=== PATIENT | female | born 1955 | race Caucasian/White ===

== ENCOUNTER 2021-04-19 03:48 | Inpatient (IN) | payer OTHER ==
[~2021-04-19] VITALS: Ht 167.6 cm; Wt 96.6 kg
[~2021-04-19 03:48] MED LIST: ACETAMINOPHEN-1 EAC1 PO; ACYCLOVIR 400400 MG PO; AMBIEN 5 MG TABL5 M1 PO; ANECREAM5 GM TOP; ASPIR 8181 MG PO; ATIVAN1 MG PO; AUGMENTIN 875-1 EACH PO; AUGMENTIN 875875 MG PO; BACLOFEN 10MG T10 MG PO; BACTRIM DS TAB1 EACH PO; BUTRANS1 EAC1 TD; CEFDINIR300 MG PO; CENTANY30 GM TP; CEPHALEXIN 500500 M3 PO; CLONAZEPAM 0.50.5 M1 PO; CLONAZEPAM 1 MG1 M1 PO; CODEINE-GUAIFE120 ML PO; COLACE100 MG PO; CRESTOR10 MG PO; CYCLOBENZAPRINE10 MG PO; CYCLOBENZAPRINE5 MG PO; DENAVIR1.5 GM TP; DIFLUCAN150 MG PO; DIFLUCAN200 MG PO; DOXYCYCLINE 10100 MG PO; ELIQUIS5 MG PO; EXTRA STRENGTH85 GM TOP; FAMCICLOVIR250 MG PO; FLEXERIL PO; GLUMETZA1000 PO; HUMALOG100 UNIT/1 SUBQ; HYDROCHLOROTHIA25 M2 PO; HYDROCODON-ACE1 EAC8 PO; HYDROCODONE-ACE15 ML PO; HYDROCODONE-AP1 EA11 PO; HYDROCODONE-AP1 EAC6 PO; HYDROCODONE-APA1 TA1 PO; IBUPROFEN 800800 M1 PO; IBUPROFEN IB200 MG PO; INSULIN; IRON236 MG PO; KEFLEX500 M1 PO; KEFLEX500 MG PO; KLONOPIN0.5 MG PO; KLOR-CON 1010 MEQ PO; LANTUS SUBQ; LANTUS100 UNIT/M SUBQ; LASIX 20 MG TAB20 MG PO; LEVAQUIN 500 M500 M2 PO; LEVAQUIN 750 M750 MG PO; LEXAPRO20 MG PO; LIDOCAINE 22 %/30 GM TOP; LIPITOR 20 MG T20 M1 PO; LISINOPRIL40 MG PO; LUNESTA3 MG PO; LYRICA150 MG PO; MAG-AL PLUS SUS30 ML PO; MAGNESIUM250 M1 PO; MECLIZINE HCL25 M1; MEDROLDOSEPACK PO; METFORMIN HCL500 MG PO; MIRALAX17 GM PO; MOM PO; MULTIVITAMINS PO; NEURONTIN 300300 M1 PO; NEURONTIN100 MG PO; NORCO 10-325 T1 EACH PO; NORCO 5-325 TA1 EACH PO; NORCO 7.5-3251 EACH PO; NORFLEX100 MG PO; NORVASC5 MG PO; NOVOLIN R100 UNIT/3 SUBQ; ONDANSETRON ODT4 MG PO; OXYCODONE HCL15 MG PO; PERCOCET PO; PHENERGAN 25 MG25 M1 PO; PREDNISONE 10 M10 M1 PO; PREDNISONE 10 M10 MG PO; PROAIR HFA8.5 GM INH; PROTONIX40 M1 PO; RANITIDINE 150150 M1 PO; ROBAXIN 750 MG750 M1 PO; ROBAXIN 750 MG750 MG PO; SONATA5 M1 PO; TESSALON PERLE100 MG PO; TRAZODONE 150150 M1 PO; TYLENOL325 MG PO; UNICOMPLEX M TA1 TA1 PO; VALACYCLOVIR HCL1 GM PO; VALACYCLOVIR1000 MG PO; VALIUM5 MG PO; VENTOLIN HFA 1818 GM INH; VICTOZA0.6 MG/0.1 SUBQ; XARELTO15 MG PO; XARELTO20 MG PO; ZANAFLEX4 MG PO; ZANTAC 150MG T150 MG PO; ZOCOR20 MG PO; ZOCOR40 MG PO; ZOFRAN ODT4 MG DISSOLVE; ZPAK PO
[2021-04-19 05:50] VITALS: BP 115/54
--- NOTE | 2021-04-19 07:38 | NUR ---
RECEIVED REPORT FROM [facility]. RECEIVED COVID UPDATE FROM [facility] GONZALEZ. PT ARRIVED ON UNIT 0530. PT AAOX4, VSS, RR EVEN AND NONLABORED ON RA, PT LUNGS CLEAR, HT RR, ABD SOFT AND ACTIVE. HCP Maximiliano CAMACHO NP CONTACTED AND MESSAGE LEFT. ONCOMING RN WILL MOVING THIS PT CARE FORWARD, IN AREAS OF ADMIT QUESTION AND MEDICATION REVIEW WITH HCP DO TERRY. PT HAS BEEN CALM AND COOPERATIVE, ZERO S/S OF ACUTE DISTRESS NOTED, PT WILL CONTINUE TO BE MONITOR PER [facility] PROTOCOL.
--- NOTE | 2021-04-19 09:01 | NUR ---
ARRIVES TO FLOOR AT APPROX [id number] YEAR OLD FEMALE-[place] [facility] [place] REPORTED PSYCHOSIS,DELUSIONAL THINKING -BELIEVES THAT MOLD IS IN HER HOME AND SMELLS IT AND FEELS IT UNDER HER SKIN AND DENTURES. HAS BEEN RUBBING SKIN RAW WITH PUMICE STONE-REFUSING TO STAY AT APARTMENT-LIVING IN CAR. BROUGHT TO ER BY COMPREHENSIVE MENTAL HEALTH COLLECTION CLERK MEMOJEANETTE LAW [phone]. DOES REPORT CHRONIC PAIN FROM FX OF RIGHT HUMEROUS AND SUBSEQUENT SURGERIES TO PLACE PINS,A SCREW AND A CLARE PER PT REPORT-STATES "OPIATES AND THC ARE THE ONLY THING THAT MAKE THE PAIN TOLERABLE" VS OBTAINED BY TOW TRUCK DISPATCHER STAFF AND ARE REPORTED TO BE WNL-COOPERATIVE WITH SIGNING CONSENT TO TREAT BUT REFUSES OTHERS STATING "CAN WE DO IT LATER"GAIT STEADY WITHOUT ASSISTIVE DEVICES.DYSPHORIC MOOD-RATES ANXIETY A 9/10. BLOOD SUGAR OBTAINED AFTER BREAKFAST AND IS > 300-md notified AND ADMIT ORDERS TO BE ENTERED.
[2021-04-19 09:36] VITALS: BP 132/70
[2021-04-19 11:29] LABS: CHOLESTEROL 199 mg/dL (<200); HDL CHOLESTEROL 45 mg/dL (>40); LDL CHOLESTEROL 106 mg/dL (<100); TC:HDL 4.4 Ratio (Not establshd); TRIGLYCERIDE 241 mg/dL (<150); VLDL 48 mg/dL (<40)
[2021-04-19 12:26] LABS: FOLIC ACID 31.4 ng/mL (8.6-58.9)
--- NOTE | 2021-04-19 13:22 | NUR ---
HAS BEEN FOCUSED ON MEDICATION SO FAR THIS SHIFT-BS AT 0730 336 AFTER SHE ATE-AT DESK WITHIN 5 MINUTES OF BS BEING DRAWN STATING "I NEED MY INSULIN RIGHT AWAY" INFORMED PT THAT ADMISSION ASSESSMENT,MED VERIFICATION,CONSENTS,ETC HAD TO BE COMPLETED PRIOR TO MD PUTTING IN MED ORDERS AND THAT AFTER ENTERED BY MD WOULD REQUIRE ADDITIONAL VERIFICATION IN PHARMACY PRIOR TO COMING TO FLOOR.-DR SANDERS CONTACTED AT APPROX 1045 RE MISSED DOSE OF INSULIN AND BS RECORDED AFTER EATING BREAKFAST-O RECEIVED FOR ADDITIONAL 10UNITS INSULIN GIVEN AT APPROX 1230. REPORTING RIGHT ARM PAIN RATED A 9 ON 1/10 SCALE-REQUESTING HER NORCO-TEARFUL AND REPORTING FEAR ABOUT HOW SHE WOULD DO WITH IT BEING STOPPED ABRUPTLY-MY PAIN MANAGEMENT DR HAS HAD ME ON THAT FOR YEARS-CAN THEY CALL HIM" ATTENDING GROUP-GAIT STEADY-APPETITE FAIR-DYSPHORIC MOOD-
[2021-04-19] MEDS ORDERED: NORCO7.5 PO (16:26)
--- NOTE | 2021-04-19 18:44 | NUR ---
NORC0 1 TAB GIVEN PO PRN AT 1730 FOR RIGHT UPPER EXTREMITY PAIN RATED AN 8 ON 1-10 SCALE. DID VERBALIZE DECREASE IN PAIN TO A 4 WITHIN 20 MINUTES OF TAKING. OUT OF ROOM AND SOCIAL WITH PEERS IN DAYROOM. NO NOTED OR REPORTED PSYCHOSIS OR MENTION OF MOLD. APPETITE GOOD. DENIES SI/SH. GAIT STEADY WITHOUT ASSISTIVE DEVICES. ALERT AND ORIENTED X4. FULL RANGE AFFECT.
[2021-04-19 19:51] VITALS: BP 113/46
[2021-04-19 20:01] VITALS: BP 113/46
[2021-04-19 23:06] LABS: GLYCOHEMOGLOBIN (HGB A1C) 8.6 % (4.8-5.6)
--- NOTE | 2021-04-20 10:00 | NUR ---
New admit to [facility] for psychosis, paranoia, delusions. Hx DM, HTN, gastric sleeve. Eating 100% all meals, BG 120-165. A1C 8.6%. Wt is obese, BMI 34. Continue carb control diet. Low nutrition risk
[2021-04-20 11:37] VITALS: BP 153/98
--- NOTE | 2021-04-20 15:13 | NUR ---
04/19/2021 SW was able to completed the SLUMS with the Pt. Pt scored 18/30. SW was also able to complete assessment with the Pt. Pt admits to recieving services (med management, psychiatry, and case management) with [facility]. Pt states she is in a pain clinic. Pt stated she has a dx of panic disorder. Pt reports not have a strong support system and being estranged from her adult children. Pt stated " I am afraid to go home". Pt believes mold is growing in her home. Pt stated she does smoke marijuana on occasion but denies using other drugs. Pt denied ETOH use. SW left a for Pt's CMRuby [phone], requesting a call back.
[2021-04-20 19:51] VITALS: BP 150/69
--- NOTE | 2021-04-20 20:32 | NUR ---
0700 ASSUMED CARE OF PATIENT, PATIENT CALM AND COOPERATIVE. PATIENT INTRUSIVE AT TIME JUMPING IN ON OTHERS CONVERSATIONS. AMB WITH STEADY GAIT. MEDICATION TAKEN WHOLE WITHOUT DIFFICULTY. 0841 HYDROCODONE 1 TAB GIVEN FOR PAIN RATING A 6. LS CLEAR, BS ACTIVE. PRESENT IN GROUP THIS AFTERNOON. DENIES SI/HI.
--- NOTE | 2021-04-20 22:52 | H ---
[facility] [place] [address] HISTORY AND PHYSICAL Name: SUJEY CURRY Room #: 523A-A ADM IN M.R.#: [id number] Admission: 04/19/21 Attend Phys: Radha Thomas MD Discharge: Date of : 57 Report #: [id number] THIS REPORT FOR: cc: MEMO BARRAZA JENNIFER A. DO Kerstein, Andrew H. DO ~ DOC #: [id number] CHERRY Lopez DO DATE OF SERVICE: 04/19/2021 INPATIENT PSYCHIATRIC EVALUATION ATTENDING PSYCHIATRIST: Cherry Lopez DO MEDICAL CONSULTANTS: Poornima Morgan, nurse practitioner and Gerry Guillermo MD and his hospitalist team. SOURCES OF INFORMATION: Interview with the patient, records from [facility], affidavit completed by Memo Roe from [facility]. CHIEF COMPLAINT: Ongoing paranoia, mood swings, insomnia. HISTORY OF PRESENT ILLNESS: This is a 65-year-old female brought in by her onsite case manager to [facility] Emergency Department. Paranoia, mood swings, insomnia has been happening. She is a [facility] client. Last med changed a few months ago. It has been going on for years but feels it escalated lately. This caused her to be sleeping in her car because of afraid to be in an apartment. She talked with [facility] archivist [facility] history who brought her to the emergency department for evaluation. She has been very afraid of her apartment. She reports that the mold starts coming out at 6 or 7 p.m. She states that it gets on her skin like waxy substance. She happened to use things like foot files to try to remove the waxy substance from her body. She reports that this just happens at night and because of this, she is too afraid to re-enter in the apartment, slept in her car overnight last night, sometimes she will go to a hotel just to escape the apartment. She showed [facility] archivist military history today that she feels suicidal once she is in the apartment. She denies any type of attempt. She denies homicidal ideation. She denies any current medical illness such as fever, cough, nausea and vomiting. She denies any pain medication. No COVID exposure. She has been vaccinated. She denies pain at this time. PRIMARY CARE PHYSICIAN: Dr. Barraza. MEDICAL HISTORY: Includes history of aspiration pneumonia, diabetes mellitus type 2, obesity, dyslipidemia, hiatal hernia with GERD, HSV-1 infection, [facility] [address] [place] [address] HISTORY AND PHYSICAL Name: SUJEY CURRY Room #: 523A-A [facility] IN M.R.#: [id number] Admission: 04/19/21 Attend Phys: Radha Thomas MD Discharge: Date of : 57 Report #: [id number] hypertension, medication noncompliance and obstructive sleep apnea. PSYCHIATRIC HISTORY: Includes depressive disorder, generalized anxiety disorder and sleep disturbance. Also, remote medical history of pulmonary embolism. SURGICAL HISTORY: Operative treatment of humeral shaft fracture with plate and screws without cerclage on 08/25/2019, gastric sleeve, hernia repair, right hip arthroplasty and tubal ligation. Pilonidal cyst excision, injection for right hip in 2018. HOME MEDICATIONS: Include amlodipine 5 mg a day, aspirin 81 mg oral daily, insulin lispro 10 units with meals, Lantus 30 units subcutaneously at bedtime, lisinopril 20 mg daily, metformin 500 mg p.o. b.i.d., [place] 5/325 q. 4 hours p.r.n., pantoprazole 40 mg oral daily, pramipexole 0.25 mg oral daily and pravastatin 40 mg oral daily. ALLERGIES: MOLD CAUSES HIVES. STATIN, TETANUS, DIPHTHERIA, PERTUSSIS. SOCIAL HISTORY: Alcohol 1-2 times per year. This is from April 2020. Recreational drugs, marijuana 1-2 times per month. Affidavit from Memo Roe states the patient has been expressing paranoia, mold and mist in her home. States that it comes out at night and gets on her skin. She scoops all with a pumice stone and goes down her throat. She has recently stepped in a car to get away from it and stayed at a hotel where the mold followed her. Interview with me today, the patient stated that she could not be in around the apartment anymore and if she had to be there, she would not want to be around anymore. No plans of suicide, but has been feeling suicidal if the mold does not go away. CSS has been in the home and there is no mold present. From CSS standpoint, increase in delusions, paranoia, major mood swings and has expressed multiple times that she does not want to live if she cannot escape. Also, recent insomnia. There was another update from Kathi Griffin from . The patient was brought to the ER by digital community manager for [facility] for paranoid delusions of her apartment. The patient experienced tactile gustatory and olfactory hallucinations. Really feeling the mold is covering her skin and she is using a pumice stone to scoop it all over her skin. The patient reports it gets into my dentures and she constantly smell mold in her apartment. The patient reports cleaning trying to do clinical washing off the chinchilla and "my resident services manager has told me I am cleaning this much and taking a part of paint off the chinchilla." The patient is not eating or sleeping in the apartment and believing that the mold will cover her food and she has been staying in motels or sleeping in a car. The patient has a history of major depressive disorder, recurrent episode, moderate and is reportedly medication compliant; however, due [facility] [address] [place] [address] HISTORY AND PHYSICAL Name: SUJEY CURRY Room #: 523A-A ADM IN M.R.#: [id number] Admission: 04/19/21 Attend Phys: Radha Thomas MD Discharge: Date of : 57 Report #: [id number] to hallucinations she is not able to properly care for herself. There is a crisis report by Kathi Griffin basically saying the same thing. The one thing I am missing from [place] is I think they had done some labs there. LABORATORY DATA: COVID-19 PCR was negative. It looks like some lab work from [place], we will see what may be going on. Lab work from here at [facility] done on 03/24/2021, quite a month ago: Sodium 138, potassium 3.7, chloride 103, bicarbonate 20, anion gap 7, BUN 10, creatinine 0.7, estimated GFR 84. Glucose recently 130, hemoglobin A1c, she want to have from June 2019, and so we will review other 2020 labs. AST 16, ALT 27, alkaline phosphatase 28, CK 161, troponin less than 0.06, total protein 7.4, albumin 3.7, triglycerides 241, total cholesterol 199, LDL 106, HDL 45, lipase 43. Vitamin D, actually that is too old to quote. Folate 31.4. TSH 0.302, free T4 0.83. Urinalysis from [facility] showed 1+ ketones, moderate bacteria. Toxicology is positive for opiates, actually that was from 05/18/2020. COVID-19 test negative. Let me see if she had discharge summary. She had labwork recently at [facility] [place], does not look like. Review of systems done by the hospitalist service today include denied fever, chills, nausea, vomiting, diarrhea, chest pain, lightheadedness or dizziness. She states she has low back pain related to left hip pain. PHYSICAL EXAMINATION: VITAL SIGNS: Today, temperature 36.5, pulse 94, respirations 19, BP 113/46, O2 sat 95%, weight is 96.814 kilos, BMI 34.4. MUSCULOSKELETAL: Exam well developed, obese, unkempt female, appearing stated age. MENTAL STATUS EXAMINATION: This is a well-developed, obese female appearing stated age. Attention intact. Concentration was intact. Speech normal rate and tone. Thought process: Linear and goal directed. Thought content focused on her pain medications. Mood and affect congruent, euthymic, fair range. Denied suicidal ideation, homicidal ideation, auditory, visual, or tactile hallucinations. Memory not formally tested. Insight limited. Judgment limited. Fund of knowledge below average. FORMULATION: A 65-year-old obese female transferred from [facility] due to paranoia that would impact making her unable to live in her apartment. DIAGNOSES: Time unspecified psychosis, rule out delusional disorder. The patient denies history of previous psychiatric illness, previous psychiatric hospitalizations. Medical morbidities are as follows: EKG done shows sinus tachycardia with premature atrial contractions. lowvoltage from precordial leads. [facility] [address] [place] [address] HISTORY AND PHYSICAL Name: SUJEY CURRY Room #: 523A-A ADM IN [facility].#: [id number] Admission: 04/19/21 Attend Phys: Radha Thomas MD Discharge: Date of : 57 Report #: [id number] MEDICATIONS CURRENTLY IN THE HOSPITAL: Lisinopril 20 mg a day, Lexapro 20 mg oral daily, ATORVASTATIN DISCONTINUE DUE TO ALLERGIES NOTED, amlodipine 5 mg oral daily, pantoprazole 40 mg oral daily, start risperidone 0.5 mg p.o. b.i.d. for psychosis, Lantus 30 units subQ at bedtime, docusate 100 mg b.i.d., Mirapex 0.25 mg oral at 8:00 p.m. She requested hydroxyzine 50 mg q. 6 hours p.r.n. for anxiety or agitation. Otherwise, house PRNs. PLAN: Evaluate stabilize, obtain collateral. See response to antipsychotic. We would like to get some collateral from her archivist military history. Obtain any other essential labs I did not have access to [facility]. Time spent on this case is greater than 60 minutes, greater than 50% of time was in review of records and coordination of care. She also denies family history of mental illness, stated she was raised in [place] and spent most of her adult life in [place]. Follow more background history MAR. STRENGTHS: Insured, has onsite case manager. WEAKNESSES: Multiple medical problems, questionable compliance. DO LIBAN Goff/JEAN CARLOS/LUIS ANGEL <ELECTRONICALLY SIGNED> By: Cherry Lopez, 04/20/212251 55 19 Cherry Lopez, /nt
--- NOTE | 2021-04-21 00:36 | NUR ---
Late entry d/t computer downtime. Assumed care on 04/19/21 @ 19:00. Calm and cooperative A&Ox4 Lung sounds CTA bilat, HRRR, ABD Nx4Q. Denies SI/HI, acknowledges depression and anxiety. Provided [place]rell 10/325 and Ambien @ 23:15 for back and side pain. Provided 30 units of lantus @ HS for FSBS 130. Continue to monitor for safety and comfort as per unit protocol.
--- NOTE | 2021-04-21 04:48 | NUR ---
04-20-21 CARE TRANSFERRED 1914 OBSERVED PT SITTING IN DAY ROOM. LATER PT AAOX4, VSS, RR EVEN AND NONLABORED ON RA. PT REPORTS PAIN AND SCORES AT 6 ON 0-10 SCALE, PT STATES SHE DOES NOT LIKE TO SCORE HER PAIN BECAUSE IF SHE SAYS IT'S A 8 YOU NURSES HAVE TO CALL THE DOCTOR, PT REQUESTED HER AMBIEN AND BECAME IRRIATED THAT IT HAD BEEN D/C, PT WAS VERY DEMANDING AND REPORTED SHE CANNOT SLEEP WITHOUT HER AMBIEN. REASSESSMENT OF PAIN AND PT REPORTD A 4-5, WAS BETTER, BUT SHE STILL FEELS PAIN. LATER NOTED PT RESTING WITH EYES CLOSED, ZERO S/S OF ACUTE DISTRESS NOTED, PT WILL CONTINUE TO BE MONITOR PER [facility] PROTOCOL.
[2021-04-21 09:22] VITALS: BP 131/80
[2021-04-21 10:21] VITALS: BP 131/80
--- NOTE | 2021-04-21 13:40 | NUR ---
1340 RESUMMED CARE FROM OVERNIGHT SHIFT THIS AM, PATIENT SITTING IN DAY ROOM TALKING WITH OTHER PATIENTS. PATIENT ATE BREAKFAST TOOK MEDICATION WITHOUT INCIDENCE. PATIENT DENIES SI/HI/AH/VH AT PRESENT PATIENTS ABDOMEN SOFT BOWEL SOUNDS PRESENT. PATIENTS LUNGS CLEAR PATIENT COMPLAINING ABOUT PAIN IN BACK BOTH SIDES. I GAVE PATIENT HDROCODONE 10 MG AT 1345 PATIENT PARTICIPATES IN GROUPS. WILL CONTINUE TO MONITOR PATIENT FOR SAFETY AND BEHAVIORS.
--- NOTE | 2021-04-21 14:50 | NUR ---
KALI attempted to contact Pt's casey saw operator, Ruby Umanzor. KALI left a message for a call back. As of this note Ruby has not called back.
[2021-04-21 19:55] VITALS: BP 118/82
[2021-04-22 00:37] VITALS: BP 118/82
--- NOTE | 2021-04-22 02:30 | NUR ---
04/21/21 - assumed care from day nurse, pt is Alert/Oriented x 4 Q, c/o pain in back about a 6, requesting [place], this nurse initially did not see the order but after double checking the order was there so gave the pt her [place], she voice relief. She was medicated with [place] twice this shift. Pt also wanted to use her own Nystatin cream for her folds. Discussed I would need to contact the Dr for an order since we are unable to use the pt medications. Spoke with PRECISION DYER and she ordered Nystatin for the pt to be applied in the AM. Pt was okay with this. Pt is amb without assist device. takes her medication w/o difficulty.
[2021-04-22 06:02] LABS: ABSOLUTE NEUTROPHILS 3.3 thou/uL (1.4-8.2); BASOPHILS 0.8 % (0.0-2.0); EOSINOPHILS 2.9 % (0.0-3.0); HEMOGLOBIN 12.3 gm/dL (12.0-15.0); LYMPHOCYTES 32.8 % (24.0-44.0); MCH 27.9 pg (26.0-34.0); MCHC 32.5 g/dL (28.0-37.0); MCV 85.7 fL (80.0-100.0); PLATELET COUNT 265 thou/uL (150-400); POLYS 54.5 % (36.0-66.0); RBC 4.43 mil/uL (4.20-5.00); RDW 15.2 % (10.5-14.5); WBC 6.1 thou/uL (4.0-11.0)
[2021-04-22 06:27] LABS: ALBUMIN 3.1 g/dL (3.4-5.0); CALCIUM 9.2 mg/dL (8.5-10.1); CREATININE 0.7 mg/dL (0.6-1.0); MAGNESIUM 1.6 mg/dL (1.8-2.4); PHOSPHORUS 4.3 mg/dL (2.5-4.9); POTASSIUM 4.8 mmol/L (3.5-5.1); TOTAL BILIRUBIN 0.3 mg/dL (0.2-1.0); TOTAL PROTEIN 6.8 g/dL (6.4-8.2)
[2021-04-22 09:46] VITALS: BP 108/42
--- NOTE | 2021-04-22 12:27 | NUR ---
PATIENT HAS BEEN UP, AND OUT ON THE UNIT, AMBULATE WITH STEADY GAIT. PATIENT TOOK ALL MEDICATION WHOLE WITHOUT DIFFICULTY, SHE IS EATING MEALS, AND DRINKING FLUID WELL. PATIENT DENIES SUICIDAL/HOMICIDAL IDEATION, SHE RATES DEPRESSION 4/10, ANXIETY 5/10, BACK PAIN 6/10. PRN NORCO GIVEN FOR BACK PAIN, WITH NO RELIEF, PAIN REMAIN AT 6/10 UPON REASSESSMENT. PRN ATARAX 50MG GIVEN FOR ANXIETY, WITH POSITIVE EFFECT, NO FURTHER C/O ANXIETY VOICED AT THIS TIME. NO S&S OF HYPER/HYPOGLYCEMIA NOTED, INSULIN GIVEN PER ORDER. AFFECT IS FLAT/BLUNTED, MOOD IS CALM. PATIENT IS LOOKING FORWARD TO DISCHARGING ON SATURDAY. NO SIGN OF ACUTE DISTRESS NOTED AT THIS TIME, WILL MONITOR FOR SAFETY.
[2021-04-22 19:20] VITALS: BP 111/76
--- NOTE | 2021-04-22 23:54 | NUR ---
PATIENT SITTING IN DAY ROOM, A&OX4. REPORTS BACK PAIN /, ANXIETY 5/10. GIVEN NORCO FOR PAIN AND HYDROXYZINE FOR ANXIETY, BOTH WITH GOOD EFFECTIVENESS. PATIENT CURRENTLY LYING IN BED APPEARING TO BE ASLEEP. AMBULATES INDEPENDENTLY WITH STEADY GAIT. MEDS TAKEN WHOLE WITHOUT DIFFICULTY. WILL CONTINUE TO MONITOR.
[2021-04-23 08:52] VITALS: BP 137/89
[2021-04-23 10:34] LABS: % SATURATION 19 % (20-39); IRON 48 ug/dL (50-170); TIBC 259 ug/dL (250-450)
[2021-04-23 10:48] VITALS: BP 137/89
--- NOTE | 2021-04-23 14:56 | NUR ---
8185 RESUMMED CARE FROM OVERNIGHT SHIFT THIS AM, PATIENT IN DAY ROOM TALKING WITH OTHER PATIENTS. PATIENT ALERT ORIENTED TIMES 4 PATIENT DENIES SI/HI/AH/VH AT PRESENT. PATIENTS ABDOMEN SOFT BOWEL SOUNDS PRESENT; PATIENTS LUNGS CLEAR. PATIENT HAS PARTICPATED IN ALL GROUPS PATIENT IS SUPPOSE TO DISCHARGE TOMMOROW. WILL CONTINUE TO MONITOR PATIENT FOR SAFETY AND BEHAVIORS.
[2021-04-23 19:13] VITALS: BP 132/59
[2021-04-23 20:00] VITALS: BP 132/59
--- NOTE | 2021-04-23 23:50 | NUR ---
PATIENT CARE WAS RESUMED AT 1900. SHE IS ALERT AND ORINETED. VERY EXCITED ABOUT GOING HOME. SHE DENIES,SI/AVH/HI. DUE MEDS WERE GIVEN AND SHE IS ABLE T VERBALIZE HER NEEDS. LUNGS ARE CLEAR. ABD SOFT NNE TENTED. INSULIN GIVEN PER ORDER. SHE IS CALM AND Q 12 MINS CHECKS ARE ONGING. SHE HAS A HEPPW SOCK ON, BED IS LOW AND LOCK. CONTINUE TO MONITOR
[2021-04-24 08:37] VITALS: BP 123/79
[2021-04-24 12:07] VITALS: BP 123/79
--- NOTE | 2021-04-24 12:50 | NUR ---
1250 RESUMMED CARE FROM OVERNIGHT SHIFT THIS AM, PATIENT IN DAY ROOM SITTING QUIET. PATIENT ATE BREAKFAST TOOK MEDICATION WITHOUT INCIDENCE. PATIENT ALERT ORIENTED TO SELF PATIENT DENIES SI/HI/AH/VH AT PRESENT. PATIENTS ABDOMEN SOFT BOWEL SOUNDS PRESENT; PATIENTS LUNGS CLEAR. PATIENT IS ANXIOUS TO DISCHARGE TODAY. PATIENT HAS NOT DISPLAYED ANY BEHAVIORS AT PRESENT WILL CONTINUE TO MONITOR PATIENT FOR SAFETY AND BEHAVIORS.
--- NOTE | 2021-04-24 13:29 | NUR ---
1425 [facility] FROM OVERNIGHT SHIFT THIS AM, PATIENT ALERT IN DAY ROOM WATCHING TV. PATIENT ATE BREAKFAST TOOK MEDICATION WITHOUT INCIDENCE. PATIENT DENIES SI/HI/AH/VH AT PRESENT. PATIENTS ABDOMEN SOFT BOWEL SOUNDS PRESENT PATIENTS LUNGS CLEAR. PATIENT IS DISCHARGING TO HOME TODAY WITH AFTERCARE INSTRUCTIONS, BELONGINGS. WILL CONTINUE TO MONITOR PATIENT FOR SAFETY AND BEVAIORS.
[2021-04-24] MEDS ORDERED: BENAZEPRIL HCL20 MG PO (13:58)
[2021-04-24] MEDS ORDERED: AMBIEN 5 MG TABL5 M1 PO (13:59)
[2021-04-24] MEDS ORDERED: RISPERDAL 1 MG T1 MG PO (13:59)
[2021-04-24] MEDS ORDERED: LEXAPRO 10 MG T10 M1 PO (13:59)
[2021-04-24] MEDS ORDERED: MIRAPEX 0.250.25 M1 PO (14:00)
[2021-04-24] MEDS ORDERED: COLACE 100 MG100 MG PO (14:00)
[2021-04-24] MEDS ORDERED: HYDROXYZINE HCL25 M2 PO (14:00)
[2021-04-24] MEDS ORDERED: PROTONIX 20 MG20 M1 PO (14:01)
[2021-04-24] MEDS ORDERED: LANTUS SUBQ (14:02)
[2021-04-24] MEDS ORDERED: NYSTATIN-TRIAMC15 GM TOP (14:03)
[2021-04-24] MEDS ORDERED: GLUCOTROL5 MG PO (14:03)
--- NOTE | 2021-04-24 14:16 | NUR ---
SW left a message for a call back from [facility]. There has been no call back as of this note Pt has a follow up psychiatry appointment at [facility] on 05/08/2021 @1219. Pt will discharge home on 04/24/2021 @ 0470 via taxi
[2021-04-24 14:17] VITALS: BP 123/79
--- NOTE | 2021-04-25 23:22 | D ---
[facility] [address] DISCHARGE SUMMARY Name: SUJEY CURRY Room #: 523A-A [facility] IN M.R.#: [id number] Admission: 04/19/21 Attend Phys: Radha Thomas MD Discharge: 04/24/21 Date of : 57 Report #: [id number] THIS REPORT FOR: cc: MEMO BARRAZA JENNIFER A. DO Kerstein, Andrew H. DO ~ DOC #: [id number] CHERRY Lopez DO DATE OF SERVICE: 04/24/2021 INPATIENT PSYCHIATRIC DISCHARGE SUMMARY ATTENDING PSYCHIATRIST: Cherry Lopez DO. MATERIAL CHECKER AT TIME OF DISCHARGE: Mandi Guevara MD. DISCHARGE DIAGNOSES: Unspecified psychosis, resolved; history of major depression MEDICAL COMORBIDITIES: Include obesity, chronic pain syndrome, history of gastric sleeve surgery, diabetes mellitus type 2, hypertension, obstructive sleep apnea, osteoarthritis, history of venous thromboembolism off of anticoagulation. The patient is being discharged to her home. MENTAL HEALTHCARE SERVICES: The patient has already engaged with [facility]. The patient has followup psychiatric appointment with [facility] on 05/08/2021 at 9:50. A message was left for employment case manager, Memo, will call back at time of discharge. Her employment case manager is Memo Umanzor. DISCHARGE MEDICATIONS: As follows: Amlodipine 5 mg oral daily for hypertension , metformin 1000 mg oral twice a day for diabetes mellitus, hydrocodone 10/325 one tablet each was given at q. 6 hours p.r.n., Lyrica 150 mg oral 3 times a day for pain. Scripts were given for the following: Benazepril, Lopressor 20 mg oral daily, Lexapro 20 mg oral daily, risperidone 0.5 mg oral twice daily for psychosis, zolpidem 5 mg oral at bedtime p.r.n. for sleep, ____ controlled substance. Hydroxyzine 50 mg q. 6 hours p.r.n. anxiety, agitation, script given for #30. Mirapex 0.25 mg oral at 2000 hours script for #30. Docusate 100 mg oral twice daily for bowel motility, pantoprazole 40 mg oral daily for GERD, insulin glargine 30 units subQ at bedtime. Gave her a vial of insulin. Also, a script for diabetic testing and injections issued. Glipizide 5 mg oral daily with breakfast for hyperglycemia and nystatin-triamcinolone cream one tube 1 g applied daily to affected area for up to 2 weeks. DIET: The patient is discharged on diabetic 2000 [address] diet[address] [address] DISCHARGE SUMMARY Name: SUJEY CURRY Room #: 52-A [facility] IN M.R.#: [id number] Admission: 04/19/21 Attend Phys: Radha Thomas MD Discharge: 04/24/21 Date of : 57 Report #: [id number] ACTIVITY LEVEL: As tolerated. No alcohol, no illicit drugs. Advised against smoking. The patient denied smoking at this admission. LABORATORY DATA: Laboratory at this admission are as follows: Hematology: H and H 12.3 and 38.0, white count 6.1, platelet count 265. Chemistry: Sodium 145, potassium 4.2, chloride 107, bicarbonate 31, anion gap 7, BUN 18, creatinine 0.7, estimated average glucose 200, hemoglobin A1c high at 8.6, uric acid 5.8, calcium 9.2, magnesium 1.6. Iron 48, TIBC 259, percent sats 19, ferritin 31, total bilirubin 0.3, AST 9, ALT 21, alkaline phosphatase 66. Albumin low at 3.1. Lipids this admission, triglycerides 241. Total cholesterol 199, LDL 106, HDL 45. Vitamin B12 borderline at 429. Folate 31.4. TSH 0.373, free T4 1.0, total T3 of 89. Urine drug screen is positive for marijuana in 04/2020. I thought it was done this admission, but it looks like it was not. COVID-19 serology was negative. VITAL SIGNS: At day of discharge, temperature 36.3, pulse 83, respirations 18, BP 123/79, O2 sat 79%. REASON FOR ADMISSION: Back on 04/19/2021, 65-year-old female sent to us from [facility]. She was seen there for paranoia, mood swings, insomnia. Her employment case manager, Memo Umanzor, referred her for inpatient. HOSPITAL COURSE: The patient was admitted to geriatric psychiatry unit, started her on 0.5 mg oral twice a day of risperidone. She requested Ambien for sleep. I gave her 5 mg of that. The patient was demanding at times during the admission. Counseled her on appropriate ways to make her needs known and be respectful to others. Her PCP is Dr. Barraza. She had a good weekend. No suicidal or homicidal behavior. On the day of discharge, felt to be stable for discharge. PHYSICAL EXAMINATION: VITAL SIGNS: Vital signs on the day of discharge reviewed. GENERAL: Well-developed, well-nourished, obese female. MUSCULOSKELETAL: Normal gait and station. MENTAL STATUS EXAMINATION: Attention fair. Concentration fair. Speech normal in rate, volume, and tone. Thought process: Linear and goal directed. Thought content focused on discharge. Mood and affect: Mood euthymic. Denied SI, HI. Denied auditory or visual type hallucinations. Memory not formally tested. Insight limited. Judgment fair. Fund of knowledge, no greater than average. Prognosis for this patient is fair if she maintains appointments and contact with [facility]. CHERRY Lopez DO [address] [place] [address] DISCHARGE SUMMARY Name: SUJEY CURRY Room #: 523A-A [facility] IN .R.#: [id number] Admission: 04/19/21 Attend Phys: Radha Thomas MD Discharge: 04/24/21 Date of : 57 Report #: [id number] LIBAN/DENNYS/ALLENI <ELECTRONICALLY SIGNED> By: Cherry Lopez DO 04/25/212321 30 31 Cherry Lopez DO /nt
== END 2021-04-24 14:48 | disposition home or self-care (01) | DRG 885 ==
LOC: SBH
PROVIDERS: Internal Medicine; ADMIT Psychiatry & Neurology Psychiatry; ATTEND Psychiatry & Neurology Psychiatry
DX: F23 Brief psychotic disorder (principal); E11.65 Type 2 diabetes mellitus with hyperglycemia; R45.851 Suicidal ideations; I10 Essential (primary) hypertension; G89.4 Chronic pain syndrome; G47.33 Obstructive sleep apnea (adult) (pediatric); G47.00 Insomnia, unspecified; M19.90 Unspecified osteoarthritis, unspecified site; K21.9 Gastro-esophageal reflux disease without esophagitis; F41.9 Anxiety disorder, unspecified; E78.5 Hyperlipidemia, unspecified; E66.01 Morbid (severe) obesity due to excess calories; F32.9 Major depressive disorder, single episode, unspecified; Z20.822 Contact with and (suspected) exposure to COVID-19; Z98.84 Bariatric surgery status; Z91.19 Patient's noncompliance with other medical treatment and regimen; Z68.34 Body mass index [BMI] 34.0-34.9, adult
CPT/HCPCS: 10880

== ENCOUNTER 2021-04-19 04:44 | Emergency (ER) | payer OTHER ==
[~2021-04-19] VITALS: Ht 170.2 cm; Wt 110.7 kg
[2021-04-19 04:47] VITALS: BP 124/44
[2021-04-19] MEDS ORDERED: NORCO7.5 PO (16:26)
== END 2021-04-19 05:31 ==
LOC: ER 04:44
DX: Z00.8 Encounter for other general examination (principal); Z20.822 Contact with and (suspected) exposure to COVID-19; I10 Essential (primary) hypertension; E11.9 Type 2 diabetes mellitus without complications; E78.5 Hyperlipidemia, unspecified; Z86.2 Personal history of diseases of the blood and blood-forming organs and certain disorders involving the immune mechanism; Z88.8 Allergy status to other drugs, medicaments and biological substances; Z79.899 Other long term (current) drug therapy